=== PATIENT | female | born 1980 | race Caucasian/White ===

== ENCOUNTER 2022-02-28 08:18 | Emergency (ER) | payer OTHER ==
[~2022-02-28] VITALS: Ht 152.4 cm; Wt 49.9 kg
--- NOTE | 2022-02-28 08:35 | NUR ---
PATIENT BIBS C/O LEFT ARM PAIN X1WK AND CHEST PAIN YESTERDAY WHILE WORKING. A/O X4. PLACED ON MONITOR AND IN HOSPITAL GOWN. SAFETY PRECAUTIONS IN PLACE. AWAITING TO BE SEEN BY .
--- NOTE | 2022-02-28 09:10 | NUR ---
PATIENT SIGNED WAIVER. STATES, "I STARTED MY PERIOD 3 DAYS AGO. IM NOT ".
--- NOTE | 2022-02-28 09:16 | NUR ---
CHEST X-RAY DONE
--- NOTE | 2022-02-28 10:15 | NUR ---
PATIENT UNDERGOING US
--- NOTE | 2022-02-28 10:38 | NUR ---
Patient discharged to home in stable condition. Written and verbal after care instructions given. Patient verbalizes understanding of instruction.
[2022-02-28 10:39] VITALS: BP 120/70
== END 2022-02-28 10:39 | disposition home or self-care (01) ==
LOC: ER 08:24
DX: R07.89 Other chest pain (principal); M79.602 Pain in left arm
CPT/HCPCS: 71045-TC; 93971-TC

== ENCOUNTER 2022-10-01 22:47 | Emergency (ER) | payer OTHER ==
[~2022-10-01] VITALS: Ht 152.4 cm; Wt 50.8 kg
--- NOTE | 2022-10-01 23:01 | NUR ---
BIBSELF FROM HOME C/O UPPER ABD PAIN RADIATING TO LOWER BACK X5 DAYS -N/V. PT A/OX4. TOLERATING R/A WELL WITH NO RESP DISTRESS. SAFETY MEASURES IN PLACE
--- NOTE | 2022-10-01 23:10 | NUR ---
URINE COLLECTED AND SENT TO LAB
[2022-10-01] MEDS ORDERED: KETOROLAC TROMETHAMINE INJ 30 MG/ML VIAL ONE (23:12)
[2022-10-01] MEDS ORDERED: ONDANSETRON HCL/PF 4 MG/2 ML VIAL ONE (23:12)
--- NOTE | 2022-10-01 23:20 | NUR ---
RAC #20G S/L BLOOD COLLECTED AND SENT TO LAB
[2022-10-01] MEDS: ONDANSETRON HCL/PF 4 MG/2 ML VIAL IVP ONE (23:24)
[2022-10-01] MEDS: KETOROLAC TROMETHAMINE INJ 30 MG/ML VIAL IV ONE (23:24)
[2022-10-01] MEDS ORDERED: IV NS 0.9% 1,000 ML BAG IV ONE (23:30)
[2022-10-02 00:06] LABS: BASOPHILS % (AUTO) 0.3 % (0.0-2.0); EOSINOPHILS % (AUTO) 2.6 % (0.0-6.0); HEMATOCRIT 35 % (33-45); HEMOGLOBIN 11.7 g/dL (11.5-14.8); LYMPHOCYTES # (AUTO) 2.4 K/uL (0.8-4.8); LYMPHOCYTES % (AUTO) 33.2 % (20.0-44.0); MEAN CORPUSCULAR HGB CONC 33 g/dl (31.0-36.0); MEAN CORPUSCULAR VOLUME 93 fL (82-100); MONOCYTES # (AUTO) 0.7 K/uL (0.1-1.30); MONOCYTES % (AUTO) 9.8 % (2.0-12.0); NEUTROPHILS # (AUTO) 3.9 K/uL (1.8-8.9); NEUTROPHILS % (AUTO) 54.1 % (43.0-81.0); PLATELET COUNT (AUTO) 206 K/uL (150-450); RED BLOOD CELL COUNT(AUTO) 3.76 MIL/uL (4.0-5.2); WHITE BLOOD COUNT (AUTO) 7.2 K/uL (4.3-11.0)
[2022-10-02 00:07] LABS: CALCIUM, SERUM 8.7 mg/dL (8.5-10.1); CREATININE 0.9 mg/dL (0.6-1.3); POTASSIUM 3.1 mmol/L (3.5-5.1)
[2022-10-02 00:10] LABS: BILIRUBIN,URINE NEGATIVE (NEGATIVE); COLOR,URINE YELLOW (YELLOW); LEUKOCYTE ESTERASE ,URINE NEGATIVE (NEGATIVE); NITRITE, URINE NEGATIVE (NEGATIVE); PROTEIN,URINE NEGATIVE (NEGATIVE); UGLUCOSE NEGATIVE (NEGATIVE); UROBILINOGEN,URINE 0.2 EU/dL (0.2)
[2022-10-02 00:13] LABS: ALBUMIN 3.9 g/dL (3.4-5.0); BILIRUBIN,DIRECT 0.1 mg/dL (0.0-0.2); BILIRUBIN,TOTAL 0.3 mg/dL (0.2-1.0); TOTAL PROTEIN, SERUM 7.3 g/dL (6.4-8.2)
--- NOTE | 2022-10-02 00:14 | NUR ---
US TECH AT PT'S BEDSIDE
[2022-10-02] MEDS: KETOROLAC TROMETHAMINE INJ 30 MG/ML VIAL IV ONE (00:44)
[2022-10-02] MEDS: ONDANSETRON HCL/PF 4 MG/2 ML VIAL IVP ONE (00:44)
--- NOTE | 2022-10-02 01:26 | NUR ---
Patient discharged to home in stable condition. Written and verbal after care instructions given. Patient verbalizes understanding of instruction. IV removed. Catheter intact and site benign. Pressure and 4x4 applied to site. No bleeding noted. PT ambulatory with a steady gait
[2022-10-02 02:05] VITALS: BP 112/69
== END 2022-10-02 02:06 | disposition home or self-care (01) ==
LOC: ER 22:48
DX: K80.70 Calculus of gallbladder and bile duct without cholecystitis without obstruction (principal); Z60.2 Problems related to living alone
CPT/HCPCS: 99285; 96361; 85025; 80048; 83690; 80076; 84703; 81003; 36415; 85730; 96374; 76700; 96375; J1885; J2405; J7030